=== PATIENT | male | born 1945 | race Caucasian/White ===

== ENCOUNTER 2017-07-02 11:55 | Inpatient (IN) | payer MEDICARE, BC ==
[~2017-07-02] VITALS: Ht 177.8 cm; Wt 91.4 kg
[2017-07-13] VITALS (12 sets, daily range): BP systolic 118–144; BP diastolic 56–66; PULSE 70–84; TEMP 97.2–98.4
[2017-07-13] MEDS ORDERED: ZESTRIL 20MG TA20 MG PO (06:57)
[2017-07-13] MEDS ORDERED: PRINZIDE 12.5 M1 TA1 PO (06:58)
[2017-07-13] MEDS ORDERED: NORVASC 10MG10 MG PO (06:58)
[2017-07-13] MEDS ORDERED: LIPITOR 40MG TA40 MG PO (06:59)
[2017-07-13] MEDS ORDERED: PLAVIX 75MG TAB75 MG PO (06:59)
[2017-07-13] MEDS ORDERED: ALDACTONE 25MG25 M1 PO (06:59)
[2017-07-13] MEDS ORDERED: CARDURA 2MG2 MG PO (06:59)
[2017-07-13] MEDS ORDERED: TYLENOL 500MG500 MG PO (07:00)
[2017-07-13] MEDS ORDERED: TYLENOL 8 HR PO (07:01)
[2017-07-13] MEDS ORDERED: ANTACID EXTRA750 M1 PO (07:01)
[2017-07-13] MEDS ORDERED: PEPTO BISMOL262 MG PO (07:02)
[2017-07-13] MEDS ORDERED: OMNICEF 300MG300 MG PO (07:02)
[2017-07-13 13:25] LABS: BASO % 0.2 % (0.0-2.0); EOS # 0.1 (0.0-0.7); EOS % 0.3 % (0-4.0); GRAN # 16.7 (1.4-6.5); GRAN % 89.1 % (42.2-75.2); HEMATOCRIT 47.4 % (42.0-52.0); HEMOGLOBIN 16.3 g/dl (13.5-18.0); LYMPH # 1.4 (1.2-3.4); LYMPH % 7.3 % (20.0-51.0); MEAN CELL VOLUME 91 fl (80.0-100.0); MEAN CORPUSCULAR HEMOGLOBIN 31 pg (27.0-31.0); MEAN CORPUSCULAR HGB CONC 34 g/dl (33.0-37.0); MONO # 0.4 (0.1-0.6); MONO % 2.2 % (1.7-9.3); PLATELET COUNT 169 K/mm3 (130-400); REDCELL DISTRIBUTION WIDTH-CV 13.8 % (11.5-14.5)
[2017-07-13 13:34] LABS: CALCIUM 9.5 mg/dL (8.4-10.2); CREATININE, serum 1.68 mg/dL (0.66-1.25); POTASSIUM 4.2 mmol/L (3.4-5.0)
[2017-07-14 01:50] VITALS: BP 135/69; PULSE 82; TEMP 98.6
[2017-07-14 05:26] VITALS: BP 148/69; PULSE 77; TEMP 98.3
[2017-07-14 07:13] LABS: HEMATOCRIT 43.2 % (42.0-52.0); HEMOGLOBIN 14.6 g/dl (13.5-18.0); MEAN CELL VOLUME 93 fl (80.0-100.0); MEAN CORPUSCULAR HEMOGLOBIN 31 pg (27.0-31.0); MEAN CORPUSCULAR HGB CONC 34 g/dl (33.0-37.0); MEAN PLATELET VOLUME 10.5 fl (7.4-10.4); PLATELET COUNT 187 K/mm3 (130-400); RED BLOOD COUNT 4.65 M/mm3 (4.20-5.60); REDCELL DISTRIBUTION WIDTH-CV 13.9 % (11.5-14.5)
[2017-07-14 07:33] LABS: CALCIUM 9.2 mg/dL (8.4-10.2); CREATININE, serum 1.67 mg/dL (0.66-1.25); POTASSIUM 4.4 mmol/L (3.4-5.0)
[2017-07-14 08:01] LABS: BAND 1 % (0-10); LYMPHOCYTE 9 % (20.0-51.0); NEUTROPHILS 83 % (42.0-75.2); PLATELET ESTIMATE NORMAL (NORMAL)
[2017-07-14 09:31] VITALS: BP 142/53; PULSE 85; TEMP 98
[2017-07-14 13:47] VITALS: BP 144/57; PULSE 76; TEMP 97.9
[2017-07-14 17:45] VITALS: BP 126/56; PULSE 66; TEMP 98
[2017-07-14 21:56] LABS: PH 6 (5-8); SQUAMOUS EPITHELIAL None Seen /hpf; URINE APPEARANCE Clear; URINE BACTERIA None Seen /hpf; URINE BILIRUBIN Negative (NEGATIVE); URINE BLOOD 1+ (NEGATIVE); URINE COLOR Straw; URINE GLUCOSE Negative (NEGATIVE); URINE KETONE Negative (NEGATIVE); URINE LEUKOCYTE ESTERASE Negative (NEGATIVE); URINE NITRATE Negative (NEGATIVE); URINE PROTEIN(semi-quant) Negative (NEGATIVE); URINE RBC 0-2 /hpf; URINE UROBILINOGEN Negative (NEGATIVE)
[2017-07-14 21:59] LABS: COLLECTION METHOD CLEAN CATCH
[2017-07-14 22:09] VITALS: BP 142/71; PULSE 70; TEMP 98
[2017-07-15 01:24] VITALS: BP 134/68; PULSE 64; TEMP 98.1
[2017-07-15 05:26] VITALS: BP 137/62; PULSE 68; TEMP 98
[2017-07-15 07:02] LABS: HEMATOCRIT 43.8 % (42.0-52.0); HEMOGLOBIN 14.8 g/dl (13.5-18.0); MEAN CELL VOLUME 94 fl (80.0-100.0); MEAN CORPUSCULAR HEMOGLOBIN 32 pg (27.0-31.0); MEAN CORPUSCULAR HGB CONC 34 g/dl (33.0-37.0); MEAN PLATELET VOLUME 10.2 fl (7.4-10.4); PLATELET COUNT 194 K/mm3 (130-400); RED BLOOD COUNT 4.67 M/mm3 (4.20-5.60); REDCELL DISTRIBUTION WIDTH-CV 14.1 % (11.5-14.5)
[2017-07-15 07:19] LABS: CALCIUM 9.7 mg/dL (8.4-10.2); CREATININE, serum 1.57 mg/dL (0.66-1.25); POTASSIUM 4.4 mmol/L (3.4-5.0)
[2017-07-15 10:00] VITALS: BP 135/85; PULSE 89; TEMP 98.3
== END 2017-07-15 10:55 | disposition home or self-care (01) | DRG 657 ==
LOC: SURG 07-13 05:30 → INPTSU 07-13 05:30 → SURG 07-13 07:30
PROVIDERS: Internal Medicine; Urology
PROC: 8E0W4CZ Robotic Assisted Procedure of Trunk Region, Percutaneous Endoscopic Approach (ICD-10-PCS; 2017-07-13)
PROC: 0TB14ZZ Excision of Left Kidney, Percutaneous Endoscopic Approach (ICD-10-PCS; principal; 2017-07-13 07:30)
DX: C64.2 Malignant neoplasm of left kidney, except renal pelvis (principal); N17.9 Acute kidney failure, unspecified; I12.9 Hypertensive chronic kidney disease with stage 1 through stage 4 chronic kidney disease, or unspecified chronic kidney disease; N18.2 Chronic kidney disease, stage 2 (mild); I73.9 Peripheral vascular disease, unspecified; Z95.820 Peripheral vascular angioplasty status with implants and grafts; F17.210 Nicotine dependence, cigarettes, uncomplicated
CPT/HCPCS: 99223; 99232-AI; A4314; A9284; C1713; J0171; J0690; J1100; J1956; J2405; J2704; J2765; J3010; J7120